=== PATIENT | male | born 1980 | race Caucasian/White ===

== ENCOUNTER → 2020-12-08 | Outpatient (CLI) | payer BC, OTHER ==
[~2020-12-08] MED LIST: LISI20 MT; Norco 5-325 Ta1 EACH PO
== END | disposition home or self-care (01) ==
LOC: LAB SHORT 11:01 → LAB 11:01
DX: N49.2 Inflammatory disorders of scrotum (principal)
CPT/HCPCS: 87070; 87075; 87205